=== PATIENT | female | born 1945 | race Caucasian/White ===

== ENCOUNTER 2016-12-27 09:41 | Outpatient (CLI) | payer MEDICARE, OTHER ==
[2016-10-06 17:50] VITALS: BP 152/80
[2016-12-27 10:17] LABS: BASOPHILS % 0.5 (0.0-1.5); EOSINOPHILS % 3.9 % (0.0-6.8); LYMPHOCYTES # 0.8 # k/uL (0.6-4.0); MEAN CORPUSCULAR HEMOGLOBIN 28.1 pg (28.0-34.0); MONOCYTES # 0.3 # k/uL (0.0-0.9); MONOCYTES % 6.4 % (0.0-11.0); NEUTROPHILS # 3.2 # k/uL (1.4-7.7)
[2016-12-27 10:42] LABS: eGFR (African) > 60; eGFR (Non-African) > 60
--- NOTE | 2016-12-27 13:30 | OP Clinic Progress Note ---
REASON FOR VISIT: Raegan Mi returns for follow up on her seropositive rheumatoid arthritis of multiple joints. She is doing well, better than her last visit. Her left hand is no longer swollen. She has had no significant joint pain, morning stiffness , and no limitations on activities of daily living. PAST MEDICAL HISTORY: 1. Carpal tunnel release. 2. Hysterectomy. 3. Hyperlipidemia. 4. Hypertension. 5. Seropositive rheumatoid arthritis. PRESENT MEDICATIONS: 1. Aleve as needed. 2. Atorvastatin 40 mg at bedtime. 3. Hydrochlorothiazide 25 mg daily. 4. Plaquenil 200 mg once a day. 5. Leflunomide 20 mg daily. 6. Levothyroxine 75 mcg daily. 7. Lisinopril 20 mg daily. 8. Oxybutynin. REVIEW OF SYSTEMS: No fevers, chills, sweats, chest pain, shortness of breath, cough, wheezing, nausea, vomiting, or diarrhea. PHYSICAL EXAMINATION: GENERAL: She looks well. VITAL SIGNS: Weight: 153. T: 97.5, R: 12, heart rate 80, BP: 130/74. HEENT: Sclerae are anicteric. Conjunctivae are pink. No stomatitis or glossitis. LUNGS: Clear bilaterally with no crackles or wheezing. HEART: Regular rhythm. ABDOMEN: Soft and nontender. VASCULAR: No edema or cyanosis. PERIPHERAL JOINTS: No synovitis at the DIPs, PIPs, MCPs, wrists, elbows, shoulders, hips, knees, ankles, and feet. IMPRESSION: 1. Seropositive rheumatoid arthritis of multiple joints with no organ involvement, doing well. 2. High risk drug. No evidence of drug toxicity. I reviewed her last labs. We will check her labs again today. Thank you very much. BHANU
== END 2016-12-27 09:42 ==
LOC: RHEU 09:41
PROVIDERS: ATTEND Internal Medicine
DX: M05.79 Rheumatoid arthritis with rheumatoid factor of multiple sites without organ or systems involvement (principal); Z79.899 Other long term (current) drug therapy
CPT/HCPCS: 36415; 80053; 85025; 85651; 99213; G0463

== ENCOUNTER 2017-03-28 11:08 | Outpatient (CLI) | payer OTHER ==
[2016-10-06 17:50] VITALS: BP 152/80
--- NOTE | 2017-03-31 13:06 | OP Clinic Progress Note ---
Dear Dr. Chang: REASON FOR VISIT: I had the pleasure of seeing our mutual patient, Raegan Mi, in follow up for seropositive rheumatoid arthritis of multiple joints without organ involvement. She is doing well. She is not having any joint swelling, warmth, tenderness, morning stiffness or pain. There has been no joint deformities. PAST MEDICAL HISTORY: 1. Carpal tunnel release. 2. Hysterectomy. 3. Hyperlipidemia. 4. Hypertension. 5. Seropositive rheumatoid arthritis. 6. COPD. PRESENT MEDICATIONS: 1. Aleve. 2. Atorvastatin 40 mg at bedtime. 3. Hydrochlorothiazide 25 mg daily. 4. Plaquenil 200 mg once a day. 5. Leflunomide 20 mg once a day. 6. Levothyroxine 75 mcg daily. 7. Lisinopril 20 mg daily. 8. Oxybutynin. 9. She has been started on Advair. REVIEW OF SYSTEMS: No fevers, chills, sweats, chest pain, shortness of breath, cough, wheezing, nausea, vomiting, or diarrhea. No numbness or tingling of the extremities. PHYSICAL EXAMINATION: GENERAL APPEARANCE: On exam, she looks well. VITAL SIGNS: WT: 149. HT: 5 feet 5 inches. T: 97.4, R: 18, heart rate of 87, BP: 130/80, pulse oximetry is 96% on room air. HEENT: Sclerae are anicteric. Conjunctivae are pink. No stomatitis or glossitis. LUNGS: No crackles or wheezing. HEART: Regular rhythm. ABDOMEN: Soft and nontender. VASCULAR: No edema or cyanosis. EXTREMITIES: Show no clubbing. PERIPHERAL JOINTS: DIPs, PIPs, MCPs, wrists, elbows, shoulders, hips, knees, ankles, and feet are nontender and non-swollen. No deformities. Full range of motion. Intranet Specialist strength is intact. DIAGNOSTIC STUDIES: Labs from December 27, her sedimentation was 17. CBC was within normal limits. CMP was within normal limits. IMPRESSION: 1. Seropositive rheumatoid arthritis of multiple joints, doing well. 2. High risk drug. No evidence of drug toxicity. PLAN: We will repeat a CBC, CMP, and sedimentation rate today. Thank you very much. Best regards. cc: Dr. Nilton DRUMMOND
== END 2017-03-28 11:10 ==
LOC: RHEU 11:08
PROVIDERS: ATTEND Internal Medicine
DX: M05.79 Rheumatoid arthritis with rheumatoid factor of multiple sites without organ or systems involvement (principal); Z79.899 Other long term (current) drug therapy
CPT/HCPCS: G0463

== ENCOUNTER 2017-05-11 23:18 | Emergency (ER) | payer OTHER ==
[2017-05-11] MEDS ORDERED: ASPIRIN 81 MG CHEW TAB ONE (23:45)
[2017-05-11] MEDS ORDERED: ONDANSETRON HCL/PF 4 MG/ 2ML VIAL ONE (23:52)
[2017-05-11] MEDS ORDERED: MORPHINE SULFATE 2 MG/ML DISP.SYRIN ONE (23:52)
[2017-05-11] MEDS: ONDANSETRON HCL/PF 4 MG/ 2ML VIAL IVP ONE (23:56)
[2017-05-11] MEDS: MORPHINE SULFATE 2 MG/ML DISP.SYRIN IVP ONE (23:56)
[2017-05-11] MEDS: ASPIRIN 325 MG TABLET PO ONE (23:56)
[2017-05-12 00:01] LABS: BASOPHILS % 1.1 (0.0-1.5); EOSINOPHILS % 2.3 % (0.0-6.8); MEAN CORPUSCULAR HEMOGLOBIN 27.5 pg (28.0-34.0); MEAN CORPUSCULAR VOLUME 85.5 fl (80.0-100.0); MONOCYTES % 6.4 % (0.0-11.0); NEUTROPHILS # 7.2 # k/uL (1.4-7.7)
--- NOTE | 2017-05-12 00:03 | ED Physician Documentation ---
Chest Pain - HISTORIAN Historian: patient, other (daughter in law) - HPI Stated Complaint: weakness Chief Complaint: Chest Pain Additional Information: Chest pain began about 1800, 1900. Had mowed grass, eaten supper, bathed. "A hard pain" began in precordial area. Took total of 6 tylenol over next 4-5 hours. Fell when she tried to get to bathroom. No LOC and denies injury. Daughter in law says she mowed yesterday, 05/10, then had CP till 1 am today, 05/11. However, pt says SOB was worse with CP. Denies diaphoresis. Daughter in law says pt is not typically confused. When daughter in law got to pt's house this evening, pt was confused and weak to the point she almost fell on way to car with daughter helping her. Last known Well Date: 05/09/17 Last Known Well Time: 16:00 Chest Pain Radiation: no radiation - ROS CONST: no problems - PAST HX [place] risk factors: other (COPD, HLD) Allergies/Adverse Reactions: Allergies Allergy/AdvReac Type Severity Reaction Status Date / Time No Known Allergies Allergy Verified 05/11/17 23:41 Home Medications: Ambulatory Orders Medication Instructions Recorded Hydrochlorothiazide 25 mg PO DAILY 05/01/14 [Hydrochlorothiazide] Leflunomide [Leflunomide] 20 mg PO DAILY 05/01/14 Levothyroxine Sodium [Synthroid] 75 mcg PO DAILY 05/01/14 Lisinopril [Lisinopril] 5 mg PO DAILY 05/01/14 Pravastatin Sodium [Pravastatin 40 mg PO DAILY 05/01/14 Sodium] Hydroxyzine Pamoate [Vistaril] 25 mg PO Q6H PRN #20 capsule 10/06/16 Oxybutynin Chloride [Ditropan] 5 mg PO BID 10/06/16 Potassium Chloride [Klor-Con 10] 20 meq PO DAILY #60 tablet.er 10/06/16 Albuterol Sulfate [Proair HFA] 1 puff INH DIRECTED 05/11/17 Omeprazole [Omeprazole] 20 mg PO D 05/11/17 - SOCIAL HX Smoking History: quit greater than 1 year, cigarettes - FAMILY HX Family HX: none - VITAL SIGNS Vital Signs: Vital Signs Temp Pulse Resp BP Pulse Ox 98.2 F 92 H 18 146/75 90 L 05/11/17 23:29 05/11/17 23:29 05/11/17 23:29 05/11/17 23:29 05/11/17 23:29 - REVIEWED ASSESSMENTS Nursing Assessment Reviewed: Yes Vitals Reviewed: Yes Progress - Progress Progress: 2350, [id number] by Vic, Development Analyst at [facility], for stemi. EKG faxed to Vic. 2359, pt in ambulance on way to [facility]. ED Results Lab/Radiology - Orders Orders: ED Orders Category Date Time Status Place IV Lock 1T Care 05/11/17 23:46 Ordered CHEST 1 VIEW [RAD] Routine Exams 05/11/17 23:41 Taken CBC/PLATELET/DIFF Routine Lab 05/11/17 Ordered CMP Routine Lab 05/11/17 Ordered TROPONIN I (cTnI) Stat Lab 05/11/17 Ordered Aspirin Med 05/11/17 23:45 Discontinued 324 mg .ROUTE .STK-MED ONE Aspirin Med 05/11/17 23:46 Once 325 mg PO NOW ONE Morphine Sulfate [DepoDur] Med 05/11/17 23:51 Once 2 mg IVP NOW ONE Ondansetron HCl/Pf [Zofran 4 mg/2 ml] Med 05/11/17 23:52 Once 4 mg IVP NOW ONE Chest Pain Physical Exam - EXAM General Appearance: alert (but history is not logical, cohesive), mild distress EENT: eye inspection normal, ENT inspection normal, pharynx normal (Mallampati 2 ), PRETTY, dry mucous membranes Neck: nml inspection Respiratory: nml breath sounds (but profoundly decreased throughout) CVS: reg. rate & rhythm, no murmur Abdomen: soft, normal bowel sounds Skin: warm/dry, normal color (ashen, possibly her typical) Extremities: no evidence of injury, no edema Neuro: CN's nml as tested, motor nml, sensation nml Discharge Clincal Impression: STEMI (ST elevation myocardial infarction) Qualifiers: Involved coronary artery: unspecified coronary artery Qualified Code(s): I21.3 - ST elevation (STEMI) myocardial infarction of unspecified site Referrals: Nilton Chang MD [Primary Care Provider] - 2 Days Home Medications: Ambulatory Orders Hydrochlorothiazide [Hydrochlorothiazide] 25 mg PO DAILY 05/01/14 Leflunomide [Leflunomide] 20 mg PO DAILY 05/01/14 Levothyroxine Sodium [Synthroid] 75 mcg PO DAILY 05/01/14 Lisinopril [Lisinopril] 5 mg PO DAILY 05/01/14 Pravastatin Sodium [Pravastatin Sodium] 40 mg PO DAILY 05/01/14 Hydroxyzine Pamoate [Vistaril] 25 mg PO Q6H PRN #20 capsule 10/06/16 Oxybutynin Chloride [Ditropan] 5 mg PO BID 10/06/16 Potassium Chloride [Klor-Con 10] 20 meq PO DAILY #60 tablet.er 10/06/16 Albuterol Sulfate [Proair HFA] 1 puff INH DIRECTED 05/11/17 Omeprazole [Omeprazole] 20 mg PO D 05/11/17 Condition: Fair Disposition: 02 XFER SHT-TRM HOSP Decision to Admit: NO Decision Time: 23:59
[2017-05-12 00:11] LABS: eGFR (African) > 60; eGFR (Non-African) > 60
[2017-05-12 00:56] VITALS: BP 148/78
--- NOTE | 2017-05-12 06:40 | Diagnostic Imaging Report ---
VALENTINA LIN~ [facility] [address] [facility] [address] [place], [place]. [address] ~ ~ ~ ~ Report Submission Date: May 11, 2017 11:51:50 PM CDT Patient ~ Study Name: ROBERT JIM ~ Date: May 11, 2017 11:35:51 PM CDT ~ Modality Type: CR Gender: F ~ Description: CHEST : 47 ~ Institution: [facility] Physician: VALENTINA LIN ~ ~ ~ ~ Portable chest History: Chest pain Findings: Minimal left basilar atelectasis or scar has increased since the October 06, 2016 exam. Minimal left lower lobe infiltrate may also be present. The right lung is clear. Heart size and pulmonary vascularity are normal. No pleural effusions are observed. Impression: Mild left basilar atelectasis and possibly mild left lower lobe infiltrate, increased since the prior exam. ~ Electronically signed on May 11, 2017 11:51:50 PM CDT by: Khoa DRUMMOND
== END 2017-05-12 00:02 | disposition short-term general hospital (02) ==
LOC: ED 23:18
DX: I21.3 ST elevation (STEMI) myocardial infarction of unspecified site (principal)
CPT/HCPCS: 71010; 80053; 84484; 85025; 93005; A9270; J2270; J2405; 96374; 96375; 99284; S1016

== ENCOUNTER 2017-06-17 07:17 | Observation (INO) | payer OTHER ==
[2017-06-17] MEDS ORDERED: ASPIRIN 81 MG CHEW TAB PO ONE (07:24)
[2017-06-17 07:38] LABS: BASOPHILS % 0.3 (0.0-1.5); EOSINOPHILS % 2.4 % (0.0-6.8); MEAN CORPUSCULAR HEMOGLOBIN 26.3 pg (28.0-34.0); MEAN CORPUSCULAR VOLUME 85.2 fl (80.0-100.0); NEUTROPHILS # 12.1 # k/uL (1.4-7.7)
--- NOTE | 2017-06-17 07:50 | ED Physician Documentation ---
Chest Pain - HISTORIAN Historian: patient - HPI Stated Complaint: chest pain Chief Complaint: Chest Pain Onset: hours (2 1/2 hours ago) Timing: gradual onset Duration: waxing, waning Last known Well Date: 06/17/17 Last Known Well Time: 03:00 Last known Well Code/Unknown Code: Known Context: sleep Severity: mild Quality: pressure, tightness Chest Pain Radiation: no radiation Worsened By: deep breaths, exertion Relieved By: rest Further Comments: yes (Patient states that she has recently had a CVA related to a fib and has been started on Eliquis. This AM at about 4AM she awoke with some epigastric and substernal chest pain. Described as a pressure/ sharp pain. Pain lasted for about an hour and subsided. Patient went back to sleep. Was awoken again with similar pain and came to the ED for evalution.) - ROS CONST: denies: fever, chills MS/LYMPH: none GI/: none EYES/ENT: none SKIN/ENDO: none - PAST HX [place] risk factors: hypertension, hyperlipidemia, A-Fib DVT/PE Risk Factors: none TAD/AAA risk factors: none Neuro deficit: CVA GI disease: GERD Surgeries/Procedures: hysterectomy. denies: stress test Immunizations: influenza, pneumovax Allergies/Adverse Reactions: Allergies Allergy/AdvReac Type Severity Reaction Status Date / Time No Known Allergies Allergy Verified 06/17/17 07:36 Home Medications: Ambulatory Orders Medication Instructions Recorded Hydrochlorothiazide 25 mg PO DAILY 05/01/14 [Hydrochlorothiazide] Leflunomide [Leflunomide] 20 mg PO DAILY 05/01/14 Levothyroxine Sodium [Synthroid] 75 mcg PO DAILY 05/01/14 Lisinopril [Lisinopril] 5 mg PO DAILY 05/01/14 Pravastatin Sodium [Pravastatin 40 mg PO DAILY 05/01/14 Sodium] Hydroxyzine Pamoate [Vistaril] 25 mg PO Q6H PRN #20 capsule 10/06/16 Oxybutynin Chloride [Ditropan] 5 mg PO BID 10/06/16 Potassium Chloride [Klor-Con 10] 20 meq PO DAILY #60 tablet.er 10/06/16 Albuterol Sulfate [Proair HFA] 1 puff INH DIRECTED 05/11/17 Omeprazole [Omeprazole] 20 mg PO D 05/11/17 Apixaban [Eliquis] 2.5 mg PO DAILY 06/17/17 Metoprolol Tartrate [Lopressor] 25 mg PO DAILY 06/17/17 - SOCIAL HX Smoking History: quit greater than 1 year (quit 7 years ago) Alcohol Use: none Drug Use: none - FAMILY HX Family HX: other (not really sure) - VITAL SIGNS Vital Signs: Vital Signs Temp Pulse Resp BP Pulse Ox 148/78 05/12/17 00:47 - REVIEWED ASSESSMENTS Nursing Assessment Reviewed: Yes Progress - Results/Orders Results/Orders: Pt received 1 Nitro- pain went from 3 to 0/10 - Progress Progress: 08:20 Discussed with patient and daughter staying the night in the hospital for a respiratory infection and to rule out any cardiac events. We will draw blood cultures and start patient on antibiotics, breathing treatments, and check cardiac enzymes. Patient and family are in agreement. - EKG/XRAY/CT EKG: NSR Comments: rate of 85 ED Results Lab/Radiology - Lab Results Lab Results: Lab Results 06/17/17 07:30 WBC 14.20 K/ul H K/ul (4.00-12.00) RBC 5.31 M/ul H M/ul (3.90-5.20) Hgb 13.9 g/dL g/dL (12.0-16.0) Hct 45.2 % % (34.5-46.5) MCV 85.2 fl fl (80.0-100.0) MCH 26.3 pg L pg (28.0-34.0) MCHC 30.8 g/dL g/dL (30.0-36.0) RDW 14.2 % % (11.3-14.3) Plt Count 230 K/mm3 K/mm3 (130-400) Neut % (Auto) 85.4 % H % (39.0-79.0) Lymph % (Auto) 7.3 % L % (16.0-50.0) [place]oux % (Auto) 4.0 % % (0.0-11.0) Eos % (Auto) 2.4 % % (0.0-6.8) Baso % (Auto) 0.3 (0.0-1.5) Neut # (Auto) 12.1 # k/uL H # k/uL (1.4-7.7) Lymph # (Auto) 1.0 # k/uL # k/uL (0.6-4.0) Sioux # (Auto) 0.6 # k/uL # k/uL (0.0-0.9) Eos # (Auto) 0.4 # k/uL # k/uL (0.0-0.6) Baso # (Auto) 0.0 # k/uL # k/uL (0.0-0.5) Reactive Lymphs % 0.6 % % (0.0-5.0) Reactive Lymphs # 0.1 # k/uL # k/uL (0.0-0.8) - Orders Orders: ED Orders Category Date Time Status Continuous EKG monitoring Q30M Care 06/17/17 07:24 Active Continuous Pulse Oximetry Q30M Care 06/17/17 07:24 Active CHEST P.A.&LAT 2 VIEWS [RAD] Stat Exams 06/17/17 Ordered CBC/PLATELET/DIFF Routine Lab 06/17/17 07:30 Completed CMP Routine Lab 06/17/17 07:30 Received CREATINE KINASE Routine Lab 06/17/17 07:30 Received TROPONIN I (cTnI) Stat Lab 06/17/17 07:30 Received Aspirin Med 06/17/17 07:24 Discontinued 324 mg PO NOW ONE Oxygen Daily Oxygen 06/17/17 07:30 Ordered EKG WITH COMPARISON Stat Ther 06/17/17 07:24 Ordered Chest Pain Physical Exam - EXAM General Appearance: mild distress EENT: eye inspection normal Neck: nml inspection, no carotid bruit Respiratory: manifests distinct pain on movement (chest pain increases with movement and activity), decreased air movement (left middle/lower lobe), other ( productive cough x 1 week- green sputum) CVS: reg. rate & rhythm, no murmur, pulses equal Abdomen: soft, normal bowel sounds, no distension, non-tender Skin: warm/dry, pallor Extremities: non-tender, normal range of motion, no edema Neuro: oriented X3, motor nml, sensation nml, cognition normal Discharge Clincal Impression: Pneumonia, Chest pain of uncertain etiology, Chest wall pain Home Medications: Ambulatory Orders Hydrochlorothiazide [Hydrochlorothiazide] 25 mg PO DAILY 05/01/14 Leflunomide [Leflunomide] 20 mg PO DAILY 05/01/14 Levothyroxine Sodium [Synthroid] 75 mcg PO DAILY 05/01/14 Lisinopril [Lisinopril] 5 mg PO DAILY 05/01/14 Pravastatin Sodium [Pravastatin Sodium] 40 mg PO DAILY 05/01/14 Hydroxyzine Pamoate [Vistaril] 25 mg PO Q6H PRN #20 capsule 10/06/16 Oxybutynin Chloride [Ditropan] 5 mg PO BID 10/06/16 Potassium Chloride [Klor-Con 10] 20 meq PO DAILY #60 tablet.er 10/06/16 Albuterol Sulfate [Proair HFA] 1 puff INH DIRECTED 05/11/17 Omeprazole [Omeprazole] 20 mg PO D 05/11/17 Apixaban [Eliquis] 2.5 mg PO DAILY 06/17/17 Metoprolol Tartrate [Lopressor] 25 mg PO DAILY 06/17/17 Comments: Discussed admission with patient and family- they are in agreement- will start IV and oral antibiotics, scheduled nebulizer treatments. Will refer patient to Dr. Zhang for stress test. Condition: Good Disposition: ADMITTED INPATIENT Decision to Admit: [id number] Date of Decison to Admit: 06/17/17 Decision Time: 09:00
[2017-06-17] MEDS ORDERED: NITROGLYCERIN 0.4 MG TAB.SUBL SL ONE (07:52)
[2017-06-17 07:53] LABS: eGFR (African) > 60; eGFR (Non-African) > 60
[2017-06-17] MEDS ORDERED: cefTRIAXone SODIUM ADVANTAGE 1 GM in NORMAL SALINE ADD-VANTAGE 50 ML IV ONE (08:41)
[2017-06-17] MEDS ORDERED: AZITHROMYCIN 250 MG TABLET PO ONE ×2 (08:41→08:43)
[2017-06-17] MEDS ORDERED: cefTRIAXone SODIUM 1 GM VIAL ONE (08:42)
[2017-06-17] MEDS ORDERED: 0.9 % SODIUM CHLORIDE 50 ML IV ONE (08:44)
[2017-06-17] MEDS ORDERED: POTASSIUM CHLORIDE 10 MEQ TABLET.ER PO SCH ×2 (09:00→21:00)
[2017-06-17] MEDS ORDERED: Non-Formulary 1 EACH (Omeprazole [Omeprazole] 20 MG) PO SCH (09:00)
[2017-06-17] MEDS ORDERED: APIXABAN 2.5 MG TABLET PO SCH (09:00)
[2017-06-17] MEDS ORDERED: LEVOTHYROXINE SODIUM 75 MCG PO SCH (09:00)
[2017-06-17] MEDS ORDERED: PRAVASTATIN SODIUM 40 MG PO SCH (09:00)
[2017-06-17] MEDS ORDERED: LEFLUNOMIDE 20 MG PO SCH (09:00)
[2017-06-17] MEDS ORDERED: ACETAMINOPHEN 325 MG TABLET PO PRN (10:34)
[2017-06-17] MEDS ORDERED: NITROGLYCERIN 0.4 MG TAB.SUBL SL PRN (10:34)
[2017-06-17] MEDS ORDERED: PRAVASTATIN SODIUM 20 MG TABLET ONE (10:37)
[2017-06-17] MEDS ORDERED: METOPROLOL TARTRATE 50 MG TABLET ONE (10:37)
[2017-06-17] MEDS ORDERED: POTASSIUM CHLORIDE 20 MEQ TABLET.ER ONE (10:37)
[2017-06-17] MEDS: LISINOPRIL 5 MG TABLET PO SCH (10:39)
[2017-06-17] MEDS: SALINE FLUSH 10 ML DISP.SYRIN IV SCH ×2 (10:40→20:00)
[2017-06-17] MEDS: OXYBUTYNIN CHLORIDE 5 MG TABLET PO SCH ×2 (10:40→19:58)
[2017-06-17] MEDS: APIXABAN 2.5 MG TABLET PO SCH ×2 (10:40→19:58)
[2017-06-17] MEDS: HYDROCHLOROTHIAZIDE 25 MG TABLET PO SCH (10:40)
[2017-06-17] MEDS: METOPROLOL TARTRATE 25 MG TABLET PO SCH (10:41)
[2017-06-17] MEDS: IPRATROPIUM/ALBUTEROL SULFATE 3 ML AMPUL.NEB NEB SCH ×4 (11:37→21:30)
[2017-06-17 12:00] VITALS: BMI 25.0
--- NOTE | 2017-06-17 15:20 | Diagnostic Imaging Report ---
NICK MURPHY [facility] [address] [facility] [address] Report Submission Date: Jun 17, 2017 7:48:52 AM CDT Patient Study Name: ROBERT JIM Date: Jun 17, 2017 7:30:36 AM CDT Modality Type: CR Gender: F Description: CHEST : 47 Institution: [facility] Physician: NICK MURPHY HISTORY: 72-year-old female with cough, shortness of breath, atrial fibrillation, COPD COMPARISON: Chest x-ray dated 05/11/2017 TECHNIQUE: 2 views of the chest were performed. FINDINGS: The lungs are hyperexpanded without pneumothorax, consolidative infiltrates, pleural effusions, or pulmonary edema. The heart is not enlarged. There is mild thoracic degenerative disc disease. IMPRESSION: Pulmonary hyperexpansion without evidence of acute intrathoracic process. Electronically signed on Jun 17, 2017 7:48:52 AM CDT by: Clarence DRUMMOND
[2017-06-17] MEDS ORDERED: MAGNESIUM HYDROXIDE/AL HYDROX 30 ML UDC PO ONE (18:11)
[2017-06-17] MEDS ORDERED: Lidocaine 2%Visc 15ml 20 MG/ML UDC ONE (18:12)
[2017-06-17] MEDS ORDERED: MAG HYDROX/AL HYDROX/SIMETH 30 ML, Lidocaine 2%Visc 15ml 20 MG, PHENobarb/HYOSCY/ATROPI... PO ONE ×3 (18:15)
[2017-06-17] MEDS ORDERED: PRAVASTATIN SODIUM 20 MG TABLET PO SCH (21:00)
[2017-06-18] MEDS: IPRATROPIUM/ALBUTEROL SULFATE 3 ML AMPUL.NEB NEB SCH ×4 (03:09→13:20)
[2017-06-18] MEDS ORDERED: METOPROLOL TARTRATE 50 MG TABLET ONE (03:53)
[2017-06-18 06:38] LABS: MEAN CORPUSCULAR HEMOGLOBIN 26.9 pg (28.0-34.0)
[2017-06-18 06:39] LABS: BASOPHILS % 0.3 (0.0-1.5); EOSINOPHILS % 1.6 % (0.0-6.8); MONOCYTES % 5.7 % (0.0-11.0); NEUTROPHILS # 7.2 # k/uL (1.4-7.7)
[2017-06-18] MEDS ORDERED: PANTOPRAZOLE SODIUM 40 MG TABLET PO SCH (07:00)
[2017-06-18] MEDS ORDERED: LEVOTHYROXINE SODIUM 25 MCG TABLET PO SCH (07:00)
--- NOTE | 2017-06-18 08:38 | Discharge Summary ---
Discharge Summary - Discharge Sumary History of Present Illness: Patient states that she has recently had a CVA related to a fib and has been started on Eliquis. This AM at about 4AM she awoke with some epigastric and substernal chest pain. Described as a pressure/ sharp pain. Pain lasted for about an hour and subsided. Patient went back to sleep. Was awoken again with similar pain and came to the ED for evalution. In the ED cardiac enzymes were done and were negative. EKG did not show any ischemic changes. Patient had resolution of the chest pain in the ED. Was admitted to rule out unstable angina. Condition at Discharge: Stable Home Medications: Ambulatory Orders Medication Instructions Recorded Hydrochlorothiazide 25 mg PO DAILY 05/01/14 Leflunomide 20 mg PO DAILY 05/01/14 Levothyroxine Sodium [Synthroid] 75 mcg PO DAILY 05/01/14 Lisinopril 5 mg PO DAILY 05/01/14 Pravastatin Sodium 40 mg PO DAILY 05/01/14 Hydroxyzine Pamoate [Vistaril] 25 mg PO Q6H PRN #20 capsule 10/06/16 Oxybutynin Chloride [Ditropan] 5 mg PO BID 10/06/16 Potassium Chloride [Klor-Con 10] 20 meq PO DAILY #60 tablet.er 10/06/16 Albuterol Sulfate [Proair HFA] 1 puff INH DIRECTED 05/11/17 Apixaban [Eliquis] 2.5 mg PO DAILY 06/17/17 Metoprolol Tartrate [Lopressor] 25 mg PO DAILY 06/17/17 Cefuroxime Axetil [Ceftin] 500 mg PO BID #14 tablet 06/18/17 Nitroglycerin [Nitroquick] 0.4 mg SL Q5 PRN #20 06/18/17 Omeprazole 20 mg PO BID #0 06/18/17 Consultations this Visit: None Procedures this Visit: None Allergies/Adverse Reactions: Allergies Allergy/AdvReac Type Severity Reaction Status Date / Time No Known Allergies Allergy Verified 06/17/17 07:36 Patient Problems: Current Active Problems Problem Status Onset Bronchitis Acute Chest pain of uncertain etiology Acute Chest wall pain Acute GERD (gastroesophageal reflux disease) Acute History of atrial fibrillation Acute Pneumonia Acute Discharge Summary: Patient had serial cardiac enzymes from which came back normal. Patient serial EKGs remains stable without any ischemic changes. Patient did have another episode of chest pain while in the hospital. No changes in EKG was noted. This was related with a G.I. cocktail. Patient productive cough of green phlegm did improve during her 24 hour stay. Patient denied any shortness of breath the dyspnea of the time of discharge. At the time of discharge patient was stable was felt that she could be followed up on an outpatient basis and was subsequently discharged in stable condition. I did call Dr. Zhang's office to set up an appointment for further possible cardiac testing. Patient EKG does show that she had converted from a to a fib to a normal sinus rhythm. Patient will however remain on anticoagulation therapy. - Final Diagnosis (1) Chest pain of uncertain etiology Problems: stable (2) GERD (gastroesophageal reflux disease) Problems: Will increase omeprazole to BID. (3) Bronchitis Problems: Patient will be continued on antibiotic therapy of Ceftin 500 mg BID 47 day course. (4) History of atrial fibrillation Problems: Patient will be continued on current anticoagulation therapy.
[2017-06-18] MEDS: OXYBUTYNIN CHLORIDE 5 MG TABLET PO SCH (08:51)
[2017-06-18] MEDS: LISINOPRIL 5 MG TABLET PO SCH (08:52)
[2017-06-18] MEDS: APIXABAN 2.5 MG TABLET PO SCH (08:52)
[2017-06-18] MEDS: SALINE FLUSH 10 ML DISP.SYRIN IV SCH (08:52)
[2017-06-18] MEDS: HYDROCHLOROTHIAZIDE 25 MG TABLET PO SCH (08:52)
[2017-06-18] MEDS: METOPROLOL TARTRATE 25 MG TABLET PO SCH (08:54)
[2017-06-18] MEDS ORDERED: cefTRIAXone SODIUM ADVANTAGE 1 GM in NORMAL SALINE ADD-VANTAGE 50 ML IV SCH (09:00)
[2017-06-18] MEDS ORDERED: AZITHROMYCIN 250 MG TABLET PO SCH (09:00)
[2017-06-18] MEDS ORDERED: LEFLUNOMIDE 20 MG PO SCH (09:00)
[2017-06-18 10:34] VITALS: BP 105/49
== END 2017-06-18 11:52 | disposition home or self-care (01) ==
LOC: ED 07:17 → SOUTH 08:35
PROVIDERS: ADMIT Family Medicine; ATTEND Family Medicine
DX: R07.89 Other chest pain (principal); K21.9 Gastro-esophageal reflux disease without esophagitis; J40 Bronchitis, not specified as acute or chronic; I48.91 Unspecified atrial fibrillation
CPT/HCPCS: 36415; 71020; 80053; 82550; 84484; 85025; 87040; 93005; 94640; 94760; A9270; G0378; J0696; 96374; 96376; 99284; S1016

== ENCOUNTER → 2017-06-26 | Outpatient (CLI) | payer OTHER ==
[2017-06-18 10:34] VITALS: BP 105/49
== END ==
LOC: LAB 14:42
PROVIDERS: ATTEND Internal Medicine
DX: M05.79 Rheumatoid arthritis with rheumatoid factor of multiple sites without organ or systems involvement (principal); Z79.899 Other long term (current) drug therapy
CPT/HCPCS: 36415; 85651

== ENCOUNTER 2017-06-27 09:45 | Outpatient (CLI) | payer OTHER ==
--- NOTE | 2017-06-27 13:25 | OP Clinic Progress Note ---
REASON FOR VISIT: Raegan Mi returns for follow up on her seropositive rheumatoid arthritis of multiple joints. She is doing well. She denied having significant joint swelling, warmth, tenderness, morning stiffness or pain. She does have a little swelling of the right 3rd PIP and she cannot get her ring on but it does not bother her. PAST MEDICAL HISTORY: 1. Carpal tunnel release. 2. Hysterectomy. 3. Hyperlipidemia. 4. Hypertension. 5. COPD. 6. Rheumatoid arthritis as above. PRESENT MEDICATIONS: 1. Aleve. 2. Atorvastatin 40 mg at bedtime. 3. HCTZ 25 mg daily. 4. Plaquenil 200 mg once a day. 5. Leflunomide 20 mg once a day. 6. Levothyroxine 75 mcg daily. 7. Lisinopril 20 mg daily. 8. Oxybutynin. REVIEW OF SYSTEMS: She was admitted to the hospital for chest pain. Cardiac causes of chest pain was excluded. She was at this time started on metoprolol. She is also on Eliquis 2.5 mg daily. She was treated with Ceftin 500 mg twice a day for 1 week and pravastatin 40 mg at bedtime. ALLERGIES: She has no known drug allergies. PHYSICAL EXAMINATION: GENERAL: She looks well. VITAL SIGNS: T: 97.4, R: 20, heart rate of 74, BP: 130/75. HEENT: Sclerae are anicteric. Conjunctivae are pink. No stomatitis or glossitis. LUNGS: Fine crackles in the bases. HEART: Regular rate and rhythm. ABDOMEN: Soft and nontender. VASCULAR: No edema or cyanosis. PERIPHERAL JOINTS: The DIPs, PIPs, MCPs, wrists, elbows, shoulders, hips, knees, ankles, and feet all show no synovitis. DIAGNOSTIC STUDIES: She had blood work on June 17, which was reviewed. Liver functions were normal with an AST/ALT of 23 and 19, respectively. Creatinine was 0.7. CBC on June 18, white count was 8.6, hemoglobin 12.4, platelets were normal. IMPRESSION: 1. Seropositive rheumatoid arthritis, active and stable. 2. High risk drug. No evidence of toxicity. No need for labs today. PLAN: I will see the patient back in 3 months. I have also asked to bring in all her medications for medication reconciliation. cc: Dr. Nilton DRUMMOND
== END 2017-06-27 10:00 ==
LOC: RHEU 09:45
PROVIDERS: ATTEND Internal Medicine
DX: M05.89 Other rheumatoid arthritis with rheumatoid factor of multiple sites (principal); E78.5 Hyperlipidemia, unspecified; I10 Essential (primary) hypertension; E11.9 Type 2 diabetes mellitus without complications; J44.9 Chronic obstructive pulmonary disease, unspecified; Z79.899 Other long term (current) drug therapy
CPT/HCPCS: 99213; G0463

== ENCOUNTER 2017-09-26 11:24 | Outpatient (CLI) | payer OTHER ==
--- NOTE | 2017-09-26 15:11 | OP Clinic Progress Note ---
REASON FOR VISIT: Raegan Mi returns for follow up of seropositive rheumatoid arthritis of multiple sites. She is doing well except for the past week, her left wrist has acted up again. Now she has been picking pecans and has been significantly busier. Otherwise, the rest of her joints, no significant joint swelling, warmth, tenderness, morning stiffness or pain. PAST MEDICAL HISTORY: 1. Carpal tunnel release. 2. Hysterectomy. 3. Hyperlipidemia. 4. Hypertension. 5. COPD. 6. Rheumatoid arthritis. PRESENT MEDICATIONS: She brings in her medications as I requested and they are: 1. Plaquenil 200 mg twice a day. 2. Leflunomide 20 mg daily. 3. Levothyroxine 100 mcg daily. 4. Lisinopril 10 mg daily. 5. Oxybutynin 5 mg twice a day. 6. Atorvastatin 40 mg at bedtime. 7. Hydrochlorothiazide 25 mg daily. 8. Potassium chloride 10 mEq daily. 9. Prednisone 5 mg 1 to 2 a day p.r.n. 10. Eliquis 50 mg twice a day. 11. Hydroxyzine 25 mg every 6 hours as needed. 12. Metoprolol 25 mg daily. 13. Omeprazole 20 mg daily. 14. Nitrostat. 15. ProAir. 16. Advair. ALLERGIES: She has no known drug allergies. REVIEW OF SYSTEMS: No fevers, chills, sweats, chest pain, shortness of breath, cough, wheezing, nausea, vomiting, or diarrhea. PHYSICAL EXAMINATION: GENERAL: On exam, she looks well. VITAL SIGNS: Weight: 152. T: 96.8, R: 20, Heart rate of 70, BP: 136/70. HEENT: Sclerae are anicteric. Conjunctivae are pink. No stomatitis or glossitis. LUNGS: Clear bilaterally with no crackles or wheezing. HEART: Regular rhythm. ABDOMEN: Soft and nontender. VASCULAR: No edema or cyanosis. PERIPHERAL JOINTS: DIPs, PIPs, MCPs, wrists, elbows, shoulders, hips, knees, ankles, and feet are unremarkable with no synovitis. She does have some CMC pain with crepitance of the left thumb. IMPRESSION: 1. Seropositive rheumatoid arthritis, active and stable. 2. Left thumb CMC osteoarthritis (OA). 3. High risk drug. No drug toxicity. 4. The cost of her medications is over $270 per month after insurance. It is causing her great difficulty. The Plaquenil is costing her $72 on its own. PLAN: 1. I am stopping the Plaquenil. 2. Continue with Arava alone and see how she does. Thank you very much. Best regards, cc: Dr. Nilton DRUMMOND
== END 2017-09-26 12:59 ==
LOC: RHEU 11:24
PROVIDERS: ATTEND Internal Medicine
DX: M05.9 Rheumatoid arthritis with rheumatoid factor, unspecified (principal)
CPT/HCPCS: 99213; G0463

== ENCOUNTER 2017-10-06 10:06 | Outpatient (CLI) | payer OTHER ==
[2017-10-06 10:25] LABS: BASOPHILS % 0.5 (0.0-1.5); EOSINOPHILS % 3.2 % (0.0-6.8); MEAN CORPUSCULAR VOLUME 88.6 fl (80.0-100.0); MONOCYTES % 6.5 % (0.0-11.0); NEUTROPHILS # 3.8 # k/uL (1.4-7.7)
[2017-10-06 11:26] LABS: eGFR (African) > 60; eGFR (Non-African) > 60
== END 2017-10-06 10:07 ==
LOC: LAB 10:06
PROVIDERS: ATTEND Internal Medicine
DX: M05.79 Rheumatoid arthritis with rheumatoid factor of multiple sites without organ or systems involvement (principal); Z79.899 Other long term (current) drug therapy
CPT/HCPCS: 36415; 80053; 85025; 85651

== ENCOUNTER 2017-12-26 10:14 | Outpatient (CLI) | payer OTHER ==
--- NOTE | 2017-12-29 09:36 | OP Clinic Progress Note ---
REASON FOR VISIT: Raegan Mi returns for follow up on her seropositive rheumatoid arthritis of multiple sites. She is doing well with no joint swelling, warmth, tenderness, morning stiffness or pain. Symptoms are at a minimum. No new deformities. No loss of use. Psychiatric morfin, she is a little stressed. Her brother suddenly a few days ago. PAST MEDICAL HISTORY: 1. Carpal tunnel release. 2. Hysterectomy. 3. Hyperlipidemia. 4. Hypertension. 5. COPD. 6. Rheumatoid arthritis. PRESENT MEDICATIONS: 1. Plaquenil 200 mg twice a day. 2. Leflunomide 20 mg daily. 3. Levothyroxine 100 mcg daily. 4. Lisinopril 10 mg daily. 5. Oxybutynin 5 mg twice a day. 6. Atorvastatin 40 mg at bedtime. 7. Hydrochlorothiazide 25 mg daily. 8. Potassium chloride 10 mEq daily. 9. Prednisone 5 mg as needed. 10. Eliquis 50 mg twice a day. 11. Hydroxyzine 25 mg every 6 hours. 12. Metoprolol 25 mg daily. 13. Omeprazole 20 mg daily. 14. Nitrostat. 15. ProAir. 16. Advair. ALLERGIES: She has no known drug allergies. REVIEW OF SYSTEMS: No fevers, chills, sweats, chest pain, shortness of breath, cough, wheezing, nausea, vomiting, or diarrhea. PHYSICAL EXAMINATION: GENERAL: She looks well. VITAL SIGNS: Height: 5 feet 5 inches. Weight: 160. T: 96.9, R: 20, heart rate 74, BP: 140/80. HEENT: Sclerae are anicteric. Conjunctivae are pink. No stomatitis or glossitis. LUNGS: Clear with no crackles or wheezing. HEART: Regular rhythm. ABDOMEN: Soft and nontender. VASCULAR: No edema or cyanosis. PERIPHERAL JOINTS: The DIPs, PIPs, MCPs, wrists, elbows, shoulders, hips, knees , ankles, and feet are nontender. No synovitis. No deformities. LABORATORIES: Labs from October 06, AST and ALT were 23 and 31, respectively. Sedimentation rate was 4. White blood cell count 5.8, hemoglobin 13.6, platelets 227, with a normal differential. IMPRESSION: 1. Seropositive rheumatoid arthritis, active and doing well. 2. High risk drug. No evidence of drug toxicity. She had blood work last week with her primary care physician. No need for blood work today. PLAN: I will see her back in 3 months. Best regards, cc: Dr. Nilton DRUMMOND
== END 2017-12-26 10:15 ==
LOC: RHEU 10:14
PROVIDERS: ATTEND Internal Medicine
DX: M05.9 Rheumatoid arthritis with rheumatoid factor, unspecified (principal); Z79.899 Other long term (current) drug therapy
CPT/HCPCS: 99214; G0463

== ENCOUNTER 2018-03-27 10:00 | Outpatient (CLI) | payer OTHER ==
--- NOTE | 2018-03-30 09:22 | OP Clinic Progress Note ---
REASON FOR VISIT: Raegan merrill returns for follow up on her seropositive rheumatoid arthritis of multiple sites. She is doing well with no joint swelling, warmth, tenderness, morning stiffness, or pain. No new deformities. PAST MEDICAL HISTORY: As above, also includes: 1. Carpal tunnel release. 2. Hysterectomy. 3. Hyperlipidemia. 4. Hypertension. 5. COPD. PRESENT MEDICATIONS: 1. Plaquenil 200 mg twice a day. 2. Leflunomide 20 mg daily. 3. Levothyroxine 100 mcg daily. 4. Lisinopril 20 mg daily. 5. Oxybutynin 5 mg twice a day. 6. Atorvastatin 40 mg at bedtime. 7. Hydrochlorothiazide 25 mg daily. 8. Potassium chloride 10 mEq daily. 9. Prednisone 5 mg as needed. 10. Eliquis 50 mg twice a day. 11. Hydroxyzine 25 mg every 6 hours. 12. Metoprolol 25 mg daily. 13. Omeprazole. 14. Nitrostat. 15. ProAir. 16. Advair. ALLERGIES: She has no known drug allergies. REVIEW OF SYSTEMS: Positive for left thumb pain. It is worse with gripping. She has been dropping things. There is no numbness or tingling. She points to the CMC joints. Otherwise, no fevers, chills, sweats, chest pain, shortness of breath, cough, wheezing, nausea, vomiting, or diarrhea. PHYSICAL EXAMINATION: VITAL SIGNS: Height: 5 feet 5 inches. Weight: 152. T: 97.2, R: 20, heart rate 70, BP: 133/75. HEENT: Sclerae are anicteric. Conjunctivae are pink. No stomatitis or glossitis. LUNGS: Clear with no crackles or wheezing. HEART: Regular rate and rhythm. ABDOMEN: Soft and nontender. VASCULAR: No edema or cyanosis. PERIPHERAL JOINTS: DIPs, PIPs, MCPs, wrists, elbows, shoulders, hips, knees, ankles, and feet all show no synovitis or tenderness. Good alignment. Full range of motion. Concentrating on the left thumb, she has negative Vero maneuver. She has some CMC crepitus with tenderness and maybe a little synovial cyst. IMPRESSION: 1. Seropositive rheumatoid arthritis, active and stable, doing well. 2. High risk drug. She just had labs done. We will try to obtain those, but that was about 3 months ago. 3. Left thumb pain. This looks more like CMC osteoarthritis (OA). PLAN: 1. I gave her a lab slip for a CBC, CMP, and sedimentation rate. 2. I am putting her in a cock-up thumb splint. 3. I will see her back in 3 months. Thank you very much. Best regards, cc: Dr. Nilton DRUMMOND
== END 2018-03-27 12:31 ==
LOC: RHEU 10:00
PROVIDERS: ATTEND Internal Medicine
DX: M05.9 Rheumatoid arthritis with rheumatoid factor, unspecified (principal); Z79.899 Other long term (current) drug therapy; M79.645 Pain in left finger(s)
CPT/HCPCS: 99214; G0463

== ENCOUNTER 2018-04-01 10:40 | Outpatient (CLI) | payer OTHER ==
[2018-04-01 11:24] LABS: eGFR (African) > 60; eGFR (Non-African) > 60
[2018-04-01 11:26] LABS: MEAN CORPUSCULAR HEMOGLOBIN 26.4 pg (28.0-34.0); MEAN CORPUSCULAR VOLUME 86.2 fl (80.0-100.0)
[2018-04-01 12:32] LABS: SEGMENTED NEUTROPHILS % 91 % (39-79)
== END 2018-04-01 13:17 ==
LOC: LAB 10:40
PROVIDERS: ATTEND Internal Medicine
DX: M06.9 Rheumatoid arthritis, unspecified (principal); Z79.899 Other long term (current) drug therapy
CPT/HCPCS: 36415; 80053; 85025; 85651

== ENCOUNTER 2018-04-13 12:04 | Outpatient (CLI) | payer OTHER ==
--- NOTE | 2018-04-13 13:56 | Diagnostic Imaging Report ---
BATSHEVA CARCAMO [facility] [address] [facility].[address] [address] Report Submission Date: Apr 13, 2018 1:00:51 PM CDT Patient Study Name: ROBERT JIM Date: Apr 13, 2018 12:27:00 PM CDT Modality Type: DX Gender: F Description: CHEST : 47 Institution: [facility] Physician: BATSHEVA CARCAMO Examination: PA and lateral chest. History: SHORTNESS OF AIR/COUGH X 2 MONTHS (Hx) Comparison exam: 17 June 2017 Findings: PA lateral chest demonstrate a normal cardiac and mediastinal silhouette. Parenchymal haziness at the left lung base. No blunting of the costophrenic margins. Osseous structures are appropriate for age. Impression: Left base hazy infiltrate. Electronically signed on Apr 13, 2018 1:00:51 PM CDT by: Morgan DRUMMOND
== END 2018-04-13 12:06 ==
LOC: RAD 12:04
PROVIDERS: ATTEND Family Medicine
DX: R06.02 Shortness of breath (principal)
CPT/HCPCS: 71046

== ENCOUNTER 2018-06-26 09:19 | Outpatient (CLI) | payer OTHER ==
--- NOTE | 2018-06-26 13:45 | OP Clinic Progress Note ---
REASON FOR VISIT: Raegan Mi returns for follow up of seropositive rheumatoid arthritis of multiple sites. She is doing well. No joint swelling, warmth, or tenderness. Morning stiffness is a little more prominent, maybe 15 to 30 minutes, especially involving the hands and the left 3rd PIP joint. That left 3rd finger occasionally gets stuck but no significant pain. In review of systems, she has had no fevers, chills, or sweats. She had a problem with shortness of breath and cough. She was on steroids for 3 months and she will be seeing a data processing specialist. She had a chest x-ray performed on April 13 and she has a left base hazy infiltrate. Otherwise, no nausea, vomiting, or diarrhea. No numbness or tingling of extremities. No rashes or nodules. PAST MEDICAL HISTORY: 1. Seropositive rheumatoid arthritis. 2. Carpal tunnel release. 3. Hysterectomy. 4. Hyperlipidemia. 5. Hypertension. 6. COPD. 7. Hypothyroidism. ALLERGIES: She has no known drug allergies. PHYSICAL EXAMINATION: GENERAL: On exam, she looks well. VITAL SIGNS: Height: 5 feet 5 inches. Weight: 153 pounds. T: 98.4, R: 12, heart rate 84, BP: 146/70. HEENT: Sclerae are anicteric. Conjunctivae are pink. No stomatitis or glossitis. LUNGS: Clear with no crackles, wheezing, or rubs. HEART: Regular rate and rhythm. ABDOMEN: Soft and nontender. VASCULAR: No edema or cyanosis. PERIPHERAL JOINTS: Some hard bony swelling at the DIPs and PIPs; otherwise, no synovitis or significant tenderness at the DIPs, PIPs, MCPs, wrists, elbows, shoulders, hips, knees, ankles, and feet LABORATORIES: Her last labs from April 01 are reviewed. Her sedimentation rate was 18. White count was 8.4, hemoglobin 12.2, platelets 229,000. AST and ALT was 29 and 27, respectively. IMPRESSION: 1. Seropositive rheumatoid arthritis of multiple sites, doing well. PLAN: 1. We will check her labs for disease activity and drug toxicity. 2. I will see her back in 3 months. cc: Dr. Nilton DRUMMOND
== END 2018-06-26 09:20 ==
LOC: RHEU 09:19
PROVIDERS: ATTEND Internal Medicine
DX: M05.89 Other rheumatoid arthritis with rheumatoid factor of multiple sites (principal)
CPT/HCPCS: 99214; G0463

== ENCOUNTER 2018-07-03 13:06 | Outpatient (CLI) | payer OTHER ==
[2018-07-03 14:54] LABS: eGFR (African) > 60; eGFR (Non-African) > 60
[2018-07-04 06:08] LABS: MEAN CORPUSCULAR HEMOGLOBIN 25.9 pg (28.0-34.0)
[2018-07-04 06:09] LABS: EOSINOPHILS % 4.2 % (0.0-6.8); MONOCYTES % 8.9 % (0.0-11.0); NEUTROPHILS # 3.2 # k/uL (1.4-7.7)
[2018-07-04 12:52] LABS: BASOPHILS % 0.9 (0.0-1.5); MEAN CORPUSCULAR VOLUME 86.3 fl (80.0-100.0)
== END 2018-07-03 14:21 ==
LOC: LAB 13:06
PROVIDERS: ATTEND Internal Medicine
DX: M05.79 Rheumatoid arthritis with rheumatoid factor of multiple sites without organ or systems involvement (principal); Z79.899 Other long term (current) drug therapy
CPT/HCPCS: 36415; 80053; 85025; 86140

== ENCOUNTER 2018-09-25 09:30 | Outpatient (CLI) | payer OTHER ==
--- NOTE | 2018-09-28 13:31 | OP Clinic Progress Note ---
REASON FOR VISIT: Raegan Mi returns for follow up of seropositive rheumatoid arthritis of multiple sites. When I last saw her, she was doing quite well. We stopped her Plaquenil and now she has flared. She has pain and stiffness involving the hands, wrists, and feet, as well as her knees. She has had no new deformities and no other associated symptoms such as skin rashes, nodules, numbness or tingling of extremities, fevers, pleurisy, chest pain, cough, or wheezing. We will recall also that when I last saw her, she had just gotten off a significant amount of prednisone which she had received from a produce specialist. PAST MEDICAL HISTORY: 1. Seropositive rheumatoid arthritis. 2. Carpal tunnel release. 3. Hysterectomy. 4. Hyperlipidemia. 5. Hypertension. 6. COPD. 7. Hypothyroidism. ALLERGIES: She has no drug allergies. PRESENT MEDICATIONS: 1. Hydrochlorothiazide 25 mg daily. 2. Levothyroxine 100 mcg daily. 3. Lisinopril 10 mg daily. 4. Omeprazole 20 mg daily. 5. Atorvastatin 40 mg at bedtime. 6. Metoprolol 50 mg daily. 7. Potassium chloride 10 mEq daily. 8. Leflunomide 20 mg every other day alternating with half tablet every other day. 9. Oxybutynin 5 mg twice a day. 10. Eliquis 5 mg twice a day. 11. ProAir. 12. Hydroxyzine. 13. Nitroglycerin. REVIEW OF SYSTEMS: As above. PHYSICAL EXAMINATION: GENERAL: She looks well but is obviously uncomfortable. She has no difficulty getting out of a chair and up to the examining table. VITAL SIGNS: Weight: 150 pounds. BP: 130/68, P: 79, R: 20, T: 97.7. HEENT: Sclerae are anicteric. Conjunctivae are pink. No stomatitis or glossitis. LUNGS: Clear with no crackles, wheezing, or rubs. HEART: Regular rate and rhythm. ABDOMEN: Soft and nontender. VASCULAR: No edema or cyanosis. PERIPHERAL JOINTS: There is 1+ synovitis at the MCPs and wrists with decreased lead recoverer strength. Pain with flexion and extension. Elbows were unremarkable. Shoulders have painful abduction. Knees are tender. Ankles and feet are tender. IMPRESSION: Seropositive rheumatoid arthritis, doing poorly. PLAN: 1. I am putting her back on Plaquenil 200 mg twice a day. 2. I am bumping up her leflunomide to 20 mg daily. 3. I am instituting prednisone 5 mg twice a day. 4. Today, we will check a CBC, CMP, and sedimentation rate. Note, her last labs from July 03 were reviewed. Hemoglobin 12.4, white count 5.2, platelets 296,000. AST and ALT were 24 and 21, respectively. 5. I will see her back in 8 weeks. Thank you very much. cc: Dr. Nilton DRUMMOND
== END 2018-09-25 09:35 | disposition home or self-care (01) ==
LOC: RHEU 09:30
PROVIDERS: ATTEND Internal Medicine
DX: M05.89 Other rheumatoid arthritis with rheumatoid factor of multiple sites (principal); I10 Essential (primary) hypertension
CPT/HCPCS: 99213; G0463

== ENCOUNTER 2018-09-29 10:14 | Outpatient (CLI) | payer OTHER ==
[2018-09-29 10:51] LABS: BASOPHILS % 0.2 (0.0-1.5); EOSINOPHILS % 1.7 % (0.0-6.8); MEAN CORPUSCULAR HEMOGLOBIN 24.7 pg (28.0-34.0); MONOCYTES % 3.5 % (0.0-11.0); NEUTROPHILS # 7.5 # k/uL (1.4-7.7)
[2018-09-29 11:18] LABS: eGFR (Non-African) > 60
== END 2018-09-29 10:15 ==
LOC: LAB 10:14
PROVIDERS: ATTEND Internal Medicine
DX: M05.79 Rheumatoid arthritis with rheumatoid factor of multiple sites without organ or systems involvement (principal)
CPT/HCPCS: 36415; 80053; 85025; 85651; 86140

== ENCOUNTER 2018-12-11 09:25 | Outpatient (CLI) | payer OTHER ==
--- NOTE | 2018-12-12 11:11 | Diagnostic Imaging Report ---
BATSHEVA CARCAMO [facility] [address] [address] Report Submission Date: Dec 12, 2018 8:58:43 AM SALES ACCOUNT COORDINATOR Patient Study Name: ROBERT JIM Date: Dec 12, 2018 12:00:00 AM SALES ACCOUNT COORDINATOR Modality Type: DEXA\OT Gender: F Description: DEXA : 47 Institution: [facility] Physician: BATSHEVA CARCAMO Examination: Bone density History: Assess bone mineralization Comparison exams: None available Technique: DEXA protocol Findings: Average bone mineral density from L1 through L4: 1.096 grams cm2. T score: 0.4 Average bone mineral density of the left femoral neck: 1.142 grams cm2. T score: 1.1 Average bone mineral density of the right femoral neck: 1.143 grams cm2. T score: 1.1 Impression: Normal lumbar spine and hip mineralization for age Electronically signed on Dec 12, 2018 8:58:43 AM SALES ACCOUNT COORDINATOR by: Morgan DRUMMOND
== END 2018-12-11 09:26 ==
LOC: RAD 09:25
PROVIDERS: ATTEND Family Medicine
DX: Z78.0 Asymptomatic menopausal state (principal); Z13.89 Encounter for screening for other disorder
CPT/HCPCS: 77080

== ENCOUNTER 2019-05-10 09:40 | Outpatient (CLI) | payer OTHER ==
[2019-05-10 10:30] LABS: eGFR (Non-African) > 60
== END 2019-05-10 09:43 ==
LOC: LAB 09:40
PROVIDERS: ATTEND Internal Medicine Cardiovascular Disease
DX: I10 Essential (primary) hypertension (principal)
CPT/HCPCS: 36415; 80048

== ENCOUNTER 2019-09-27 11:16 | Emergency (ER) | payer OTHER ==
--- NOTE | 2019-09-27 11:17 | ED Physician Documentation ---
General Adult - HISTORIAN Historian: patient - HPI Stated Complaint: she had a twist motion this am and felt a pop in her knee Chief Complaint: Lower Extremity Injury Onset: hours (3) Timing: still present Severity: moderate (06/19) Further Comments: yes (She has has some "trouble" with this knee historically no specific injury and she twisted her knee this am and felt a pop with instant pain that is now a 06/19 - she did take Tylenol arthritis for the pain. She notes the pain is behind the knee and she has increased pain with weight bearing and when she stretches her leg out straight) - ROS CONST: no problems - PAST HX Past History: hypertension Immunizations: UTD - SOCIAL HX Smoking History: cigarettes Alcohol Use: none Drug Use: none - FAMILY HX Family History: No - VITAL SIGNS Vital Signs: Vital Signs Temp Pulse Resp BP Pulse Ox 105/49 06/25/17 12:21 - REVIEWED ASSESSMENTS Nursing Assessment Reviewed: Yes Vitals Reviewed: Yes <Abigail Estrada - Last Filed: 09/27/19 11:26> - VITAL SIGNS Vital Signs: Vital Signs Temp Pulse Resp BP Pulse Ox 98.5 F 71 16 166/76 97 09/27/19 11:16 09/27/19 11:16 09/27/19 11:16 09/27/19 11:16 09/27/19 11:16 <Keshawn Parker - Last Filed: 09/27/19 12:59> - PAST HX Allergies/Adverse Reactions: Allergies Allergy/AdvReac Type Severity Reaction Status Date / Time No Known Allergies Allergy Verified 09/27/19 11:24 Home Medications: Ambulatory Orders Medication Instructions Recorded Hydrochlorothiazide 25 mg PO DAILY 05/01/14 Leflunomide 20 mg PO DAILY 05/01/14 Levothyroxine Sodium [Synthroid] 100 mcg PO DAILY 05/01/14 Hydroxyzine Pamoate [Vistaril] 25 mg PO Q6H PRN #20 capsule 10/06/16 Oxybutynin Chloride [Ditropan] 5 mg PO BID 10/06/16 Albuterol Sulfate [Proair HFA] 2 puff INH Q4 PRN 05/11/17 Apixaban [Eliquis] 5 mg PO DAILY 06/17/17 Metoprolol Tartrate [Lopressor] 50 mg PO DAILY 06/17/17 Nitroglycerin [Nitrostat] 0.4 mg SL Q5 PRN #25 tab.subl 06/18/17 Omeprazole 20 mg PO BID #0 06/18/17 Atorvastatin Calcium 40 mg PO DAILY 09/27/19 Hydroxychloroquine Sulfate 200 mg PO BID 09/27/19 [Plaquenil] Losartan Potassium [Cozaar] 50 mg PO DAILY 09/27/19 Potassium Chloride [Klor-Con 10] 10 meq PO DAILY 09/27/19 Umeclidinium Brm/Vilanterol Tr 1 each IH DAILY 09/27/19 [Anoro Ellipta 62.5-25 Mcg INH] predniSONE [Yarely] 5 mg PO DAILY 09/27/19 ED Results Lab/Radiology - Radiology Radiology Impressions: Knee x-ray: no acute abnl noted. Some mild osteoarthritic changes appreciated - Orders Orders: ED Orders Category Date Time Status KNEE 3 VIEWS [RAD] Stat Exams 09/27/19 Completed <Keshawn Parker - Last Filed: 09/27/19 12:59> General Adult Physical Exam - PHYSICAL EXAM GENERAL APPEARANCE: no distress EENT: eye inspection normal, no signs of dehydration NECK: normal inspection RESPIRATORY: no resp distress, chest non-tender, breath sounds normal CVS: reg rate & rhythm, heart sounds normal ABDOMEN: soft, normal bowel sounds BACK: normal inspection, no CVA tenderness SKIN: warm/dry, normal color EXTREMITIES: non-tender, normal range of motion (pain with extension but this is achieved. Pulses + cap refill + ), no evidence of injury, no edema NEURO: oriented X3 <Abigail Estrada - Last Filed: 09/27/19 11:26> - PHYSICAL EXAM EXTREMITIES: normal range of motion, other (tender to palpation to the posterior aspect of the knee. No bony abnormalities noted. No effusion noted. ) <Keshawn Parker - Last Filed: 09/27/19 12:59> Discharge <Abigail Estrada - Last Filed: 09/27/19 11:26> Decision to Admit: NO Date of Decison to Admit: 09/27/19 Decision Time: 12:47 <Keshawn Parker - Last Filed: 09/27/19 12:59> Clincal Impression: Strain of left knee and leg Qualifiers: Encounter type: initial encounter Qualified Code(s): S86.912A - Strain of unspecified muscle(s) and tendon(s) at lower leg level, left leg, initial encounter Referrals: Nilton Chang MD [Primary Care Provider] - 2 Days Additional Instructions: Wear knee immobilizer for comfort measures. Take Aleve 220mg tab, 2 tabs twice a day with food as needed for pain. If symptoms are not improving in the next 5-7 days follow-up with your primary care provider or return to the ED. Condition: Stable Disposition: 01 HOME, SELF-CARE
--- NOTE | 2019-09-27 12:39 | Diagnostic Imaging Report ---
PATIENT MR#: [id number] PATIENT PATIENT NAME: ROBERT JIM DATE OF : 1945 REFERRING PHYSICIAN: Abigail Estrada EXAM DATE: 09/27/2019 ACCESSION NUMBER: [id number] EXAM DESCRIPTION: KNEE 3 VIEWS Left knee History: Status post fall AP, lateral and sunrise views of the left knee demonstrate no joint effusion. Medial, lateral and pa tellofemoral compartment joint space is maintained. There is a small calcification projecting along the medial co mpartment joint space measuring 5 mm. This calcification is chronic and could potentially indicate chronic abnormali ty of the medial collateral ligament. No acute osseous abnormalities are noted. Impression: No acute osseous abnormality. Small chronic calcification projecting at the medial joint compartment, possibly indicating chronic i njury of the medial collateral ligament. Read by: Dr. Beverley Posadas Transcribed by: Transcribed Date: Electronically signed by: Dr. Beverley Posadas Date signed: 09/27/2019 12:39:28 PM
[2019-09-27 13:09] VITALS: BP 152/71
== END 2019-09-27 13:03 | disposition home or self-care (01) ==
LOC: ED 11:16
DX: S86.912A Strain of unspecified muscle(s) and tendon(s) at lower leg level, left leg, initial encounter (principal); X50.1XXA Overexertion from prolonged static or awkward postures, initial encounter
CPT/HCPCS: 73562; 99282; 99283

== ENCOUNTER 2019-11-13 08:42 | Emergency (ER) | payer OTHER ==
--- NOTE | 2019-11-13 09:10 | ED Physician Documentation ---
General Adult - HISTORIAN Historian: patient - HPI Stated Complaint: N/V Chief Complaint: General Adult Additional Information: Patient presents to ED with a 12 hour history of nausea/vomiting. Patient states she was not feeling well last night when she went to bed. This morning when she woke up she was nauseated. She tried to eat breakfast but vomiting shortly after eating. Patient reports having right lower abdominal pain 3 days ago. She was evaluated at [place] with negative CT scan for acute appy, however, did have UTI. She was given Tramadol and Keflex. She denies fever, chills, diarrhea or abdominal pain today. Onset: hours (12) Timing: still present Severity: mild - ROS CONST: denies: fever EYES/ENT: denies: nasal drainage CVS/RESP: denies: chest pain, shortness of breath GI/: vomiting, nausea. denies: abdominal pain, diarrhea MS/SKIN/LYMPH: none NEURO/PSYCH: denies: headache - PAST HX Past History: COPD, hypertension Other History: none Surgeries/Procedures: none Allergies/Adverse Reactions: Allergies Allergy/AdvReac Type Severity Reaction Status Date / Time No Known Allergies Allergy Verified 11/13/19 08:57 Home Medications: Ambulatory Orders Medication Instructions Recorded Hydrochlorothiazide 25 mg PO DAILY 05/01/14 Leflunomide 20 mg PO DAILY 05/01/14 Levothyroxine Sodium [Synthroid] 100 mcg PO DAILY 05/01/14 Hydroxyzine Pamoate [Vistaril] 25 mg PO Q6H PRN #20 capsule 10/06/16 Oxybutynin Chloride [Ditropan] 5 mg PO BID 10/06/16 Albuterol Sulfate [Proair HFA] 2 puff INH Q4 PRN 05/11/17 Apixaban [Eliquis] 5 mg PO DAILY 06/17/17 Metoprolol Tartrate [Lopressor] 50 mg PO DAILY 06/17/17 Nitroglycerin [Nitrostat] 0.4 mg SL Q5 PRN #25 tab.subl 06/18/17 Omeprazole 20 mg PO BID #0 06/18/17 Atorvastatin Calcium 40 mg PO DAILY 09/27/19 Hydroxychloroquine Sulfate 200 mg PO BID 09/27/19 [Plaquenil] Losartan Potassium [Cozaar] 50 mg PO DAILY 09/27/19 Potassium Chloride [Klor-Con 10] 10 meq PO DAILY 09/27/19 Umeclidinium Brm/Vilanterol Tr 1 each IH DAILY 09/27/19 [Anoro Ellipta 62.5-25 Mcg INH] predniSONE [Yarely] 5 mg PO DAILY 09/27/19 Cephalexin [Keflex] 500 mg PO BID 11/13/19 Ondansetron HCl Rapdis [Zofran Odt] 4 mg PO Q8 PRN #20 tab 11/13/19 Potassium Chloride [Klor-Con M20] 20 meq PO Q12 5 Days #10 tab.er.prt 11/13/19 Tramadol HCl [Ultram] 50 mg PO TID 11/13/19 - SOCIAL HX Smoking History: non-smoker Alcohol Use: none Drug Use: none - FAMILY HX Family History: No - VITAL SIGNS Vital Signs: Vital Signs Temp Pulse Resp BP Pulse Ox 97.8 F 67 18 203/73 94 11/13/19 08:42 11/13/19 08:42 11/13/19 08:42 11/13/19 08:42 11/13/19 08:42 - REVIEWED ASSESSMENTS Nursing Assessment Reviewed: Yes Vitals Reviewed: Yes Progress - Progress Progress: 0945 Potassium is 2.5. Will replace IV. Patient does not think she can tolerate oral replacement. 1151 Patient feeling better. Potassium still infusing. ED Results Lab/Radiology - Lab Results Lab Results: UA - negative, sp gravity 1.020, - Orders Orders: ED Orders Category Date Time Status Place IV Lock 1T Care 11/13/19 09:03 Active CBC/PLATELET/DIFF Routine Lab 11/13/19 Ordered CMP Routine Lab 11/13/19 Ordered UA W/MICRO IF INDICATED Routine Lab 11/13/19 09:04 Ordered 0.9 % Sodium Chloride [Normal Saline] 1,000 ml Med 11/13/19 09:03 Active IV NOW Ondansetron HCl/Pf [Zofran] Med 11/13/19 09:05 Discontinued 4 mg IVP NOW ONE hydrALAZINE HCL [Apresoline] Med 11/13/19 09:06 Once 10 mg IVP NOW ONE General Adult Physical Exam - PHYSICAL EXAM GENERAL APPEARANCE: no distress EENT: PRETTY NECK: supple RESPIRATORY: no resp distress, breath sounds normal CVS: reg rate & rhythm, heart sounds normal ABDOMEN: soft, normal bowel sounds, non-tender BACK: normal inspection SKIN: warm/dry EXTREMITIES: non-tender NEURO: oriented X3, mood/affect nml Discharge Clincal Impression: Hypokalemia Nausea & vomiting Qualifiers: Vomiting type: unspecified Vomiting Intractability: non-intractable Qualified Code(s): R11.2 - Nausea with vomiting, unspecified Prescriptions: Ondansetron HCl Rapdis [Zofran Odt] 4 mg PO Q8 PRN #20 tab PRN Reason: nausea/vomiting Potassium Chloride [Klor-Con M20] 20 meq PO Q12 5 Days #10 tab.er.prt Referrals: Nilton Chang MD [Primary Care Provider] - 2 Days Additional Instructions: 1. Take Zofran every 8 hours as needed for nausea/vomiting 2. Take Potassium every 12 hours, starting tonight, x 5 days 3. Follow up with PCP within 4 days, have potassium rechecked 4. Return to the ER for new or worsening symptoms Condition: Stable Disposition: 01 HOME, SELF-CARE Decision to Admit: NO Date of Decison to Admit: 11/13/19 Decision Time: 12:05
[2019-11-13] MEDS: 0.9 % SODIUM CHLORIDE 1,000 ML IV ONE (09:14)
[2019-11-13] MEDS: ONDANSETRON HCL/PF 4 MG/ 2ML VIAL IVP ONE (09:14)
[2019-11-13 09:27] LABS: BASOPHILS % 0.4 % (0.0-1.5); NEUTROPHILS # 6.8 # k/uL (1.4-7.7)
[2019-11-13 09:33] LABS: eGFR (Non-African) > 60
[2019-11-13] MEDS: POTASSIUM CHLORIDE IV ONE (10:00)
[2019-11-13] MEDS: NS IV ONE (10:00)
[2019-11-13] MEDS: hydrALAZINE HCL 20 MG/1 ML IVP ONE (11:08)
[2019-11-13 12:45] LABS: APPEARANCE,URINE CLEAR (CLEAR); COLOR,URINE YELLOW (YELLOW)
[2019-11-13 12:46] LABS: OCCULT BLOOD,URINE NEGATIVE (NEGATIVE); PH URINE 7.5 (5.0 - 8.0); UROBILINOGEN URINE 0.2 Eu (0.2-1.0)
[2019-11-13 12:59] VITALS: BP 165/79
== END 2019-11-13 12:19 | disposition home or self-care (01) ==
LOC: ED 08:42
DX: E87.6 Hypokalemia (principal); R11.2 Nausea with vomiting, unspecified
CPT/HCPCS: 80053; 81002; 85025; 96361; 96374; 99284; J2405; J3480; J7030; S1016